=== PATIENT | male | born 1990 | race Caucasian/White ===

== ENCOUNTER 2019-12-20 22:09 | Emergency (ER) | payer BC, MEDICAID ==
[2019-12-20] MEDS ORDERED: Acetaminophen/HYDROcodone 325-5 MG Tab PO ONE (22:10)
--- NOTE | 2019-12-20 22:37 | EDM.PDOC ---
ED HPI GENERAL MEDICAL PROBLEM - General Chief Complaint: General Stated Complaint: TOOTH PAIN Time Seen by Provider: 12/20/19 22:36 Source of Information: Reports: Patient History Limitations: Reports: No Limitations - History of Present Illness INITIAL COMMENTS - FREE TEXT/NARRATIVE: 29-year-old male who presents complaining of left lower dental and jaw pain. He reports that he has had a cracked left lower molar for about the past 2-3 years and has had intermittent episodes of pain associated with this tooth but over the past 2 days he reports the pain has and worse than in the past and he reports that the pain has been to a 10/10 and level of pain and is a pressure and aching type pain that radiates all over the left side of his face and head. Currently the pain is a 3/10. He has been using clove all over the tooth with some relief and he has also used ibuprofen with some relief but the pain seems to be worsening spotting to these medications very well anymore. He also feels some swelling around the tooth. No trouble swallowing. No trouble breathing. No nausea or vomiting. No fevers. He has had sweats. No chest pain. No shortness of breath. There are no other associated signs or symptoms. There are no other modifying factors. Onset: Other (This episode began 2 days ago but he has had intermittent episodes for the past 2-3 years.) Duration: Getting Worse Location: Reports: Face (Left lower posterior molar and jaw.) Quality: Reports: Ache, Pressure Severity: Moderate (to severe) Improves with: Reports: Medication (Ibuprofen and topical clove oil), Other ( Bending head down. Rinsing mouth with hydrogen peroxide.) Worsens with: Reports: Eating, Other (Palpation. 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: NSAIDS, Other Medication(s) (As above) left back molar lower jaw Pain Score (Numeric/FACES): 3 - Related Data Allergies Allergy/AdvReac Type Severity Reaction Status Date / Time No Known Allergies Allergy Verified 12/20/19 22:22 Home Meds: Home Meds Amoxicillin/Potassium Clav [Augmentin 875-125 Tablet] 1 each PO BID 10 Days #20 tablet 12/20/19 [Rx] Hydrocodone/Acetaminophen [[place] 5-325 Tablet] 1 - 2 tab PO Q6H PRN #6 tablet [Rx] Past Medical History - Past Health History Medical/Surgical History: Denies Medical/Surgical History HEENT History: Reports: Impaired Vision - Past Surgical History HEENT Surgical History: Reports: Oral Surgery ([place] teeth extraction) Social & Family History - Family History Family Medical History: Noncontributory - Tobacco Use Smoking Status *Q: Current Every Day Smoker Years of Tobacco use: 12 Packs/Tins Daily: 0.5 - Caffeine Use Caffeine Use: Reports: Soda - Alcohol Use Alcohol Use History: No - Recreational Drug Use Recreational Drug Use: No - Living Situation & Occupation Occupation: Employed (He applies [email or web address]) ED ROS GENERAL - Review of Systems Review Of Systems: See Below Constitutional: Reports: No Symptoms HEENT: Reports: Dental Pain, Other (As in history of present illness) Respiratory: Reports: No Symptoms Cardiovascular: Reports: No Symptoms GI/Abdominal: Reports: No Symptoms : Reports: No Symptoms Musculoskeletal: Reports: No Symptoms Skin: Reports: No Symptoms Neurological: Reports: Headache Hematologic/Lymphatic: Reports: No Symptoms Immunologic: Reports: No Symptoms ED EXAM, GENERAL - Physical Exam Exam: See Below Exam Limited By: No Limitations General Appearance: Alert, WD/WN, Moderate Distress (And some pain. Nontoxic.) Eye Exam: Bilateral Eye: EOMI, Normal Inspection Ears: Normal External Exam, Hearing Grossly Normal Ear Exam: Bilateral Ear: Auricle Normal Nose: Normal Inspection, Normal Mucosa, No Blood Throat/Mouth: Normal Voice, No Airway Compromise, Inflammation (Around left lower molar with markedly carious tooth) Head: Atraumatic, Normocephalic Neck: Normal Inspection, Supple, Non-Tender, Full Range of Motion. No: Lymphadenopathy (R), Lymphadenopathy (L) Respiratory/Chest: No Respiratory Distress, Lungs Clear, Normal Breath Sounds, No Accessory Muscle Use, Chest Non-Tender Cardiovascular: Normal Peripheral Pulses, Regular Rate, Rhythm, No Murmur Peripheral Pulses: 2+: Radial (L), Radial (R) GI/Abdominal: Normal Bowel Sounds, Soft, Non-Tender Back Exam: Normal Inspection Extremities: Normal Inspection, Normal Range of Motion, Non-Tender, Normal Capillary Refill Neurological: Alert, Oriented, CN II-XII Intact, Normal Cognition, No Motor/ Sensory Deficits Skin Exam: Warm, Dry, Intact, Normal Color, No Rash Lymphatic: No Adenopathy Course - Vital Signs Last Recorded V/S: Last Vital Signs Temp 37.0 C 12/20/19 22:20 Pulse 96 12/20/19 22:20 Resp 14 12/20/19 22:20 BP 130/83 12/20/19 22:20 Pulse Ox 100 12/20/19 22:20 - Orders/Labs/Meds Meds: Medications Discontinued Medications Generic Name Dose Route Start Last Admin Trade Name Jose PRN Reason Stop Dose Admin Amoxicillin 500 mg 12/20/19 22:51 12/20/19 23:00 Amoxil PO 12/20/19 22:52 500 mg ONETIME ONE Administration Amoxicillin/Clavulanate Potassium 1 tab 12/20/19 22:51 12/20/19 23:00 Augmentin 500 Mg\125 Mg PO 12/20/19 22:52 1 tab ONETIME ONE Administration - Re-Assessments/Exams Free Text/Narrative Re-Assessment/Exam: 12/20/19 22:50: Patient with carious left lower molar with gingival erythema and probable dental abscess. He was given a dose of Augmentin/amoxicillin tonight and I will give him a take-home pack hydrocodone 5/325 and a prescription for some additional hydrocodone 5/325 (6) and a prescription for Augmentin 875 mg. He was advised to see a dentist as soon as he can arrange. He should continue to use the clove all topically on the dental pain site and may also continue using ibuprofen for pain as well. Precautions and reasons for return to the emergency department were discussed with the patient prior to his discharge. Departure - Departure Time of Disposition: 22:58 Disposition: Home, Self-Care 01 Condition: Good Clinical Impression: Dental abscess, Pain, dental, Dental caries - Discharge Information *PRESCRIPTION DRUG MONITORING PROGRAM REVIEWED*: No (Patient with painful condition which warranted a small number of narcotic pain medication for his pain.) Prescriptions: Amoxicillin/Potassium Clav [Augmentin 875-125 Tablet] 1 each PO BID 10 Days #20 tablet Hydrocodone/Acetaminophen [[place] 5-325 Tablet] 1 - 2 tab PO Q6H PRN #6 tablet PRN Reason: Moderate to severe pain Instructions: Dental Abscess, [id number] Referrals: PCP,None [Primary Care Provider] - Forms: ED Department Discharge Additional Instructions: You appear to have a dental infection in your left lower posterior molar. You need to see a dentist as soon as you can arrange to definitively deal with this problem. Continue to use the clove oil on the tooth site for pain relief as needed. Continue to use ibuprofen 800 mg by mouth every 8 hours as needed for pain. Medications as prescribed (Augmentin 875 mg, hydrocodone 5/325). Back to the emergency department for trouble breathing, trouble swallowing, high fever or any other concerning sign or symptom. Sepsis Event Note - Evaluation Sepsis Screening Result: No Definite Risk - Focused Exam Vital Signs: Vital Signs Temp Pulse Resp BP Pulse Ox 12/20/19 22:20 37.0 C 96 14 130/83 100 Date Exam was Performed: 12/20/19 Time Exam was Performed: 23:02
[2019-12-20] MEDS ORDERED: Amoxicillin 500 MG Cap PO ONE (22:51)
[2019-12-20] MEDS ORDERED: Amoxicillin/Clavulanate K 500-125 MG Tab PO ONE (22:51)
== END 2019-12-20 23:06 | disposition home or self-care (01) ==
LOC: FB.ED 22:09
DX: K04.7 Periapical abscess without sinus (principal); K02.9 Dental caries, unspecified; F17.210 Nicotine dependence, cigarettes, uncomplicated
CPT/HCPCS: 99282; A9270-GY